=== PATIENT | female | born 1985 | race Native Hawaiian/Other Pacific Islander ===

== ENCOUNTER 2016-05-09 18:44 | Emergency (ER) | payer BC, OTHER ==
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
[2016-05-09] MEDS ORDERED: MORPHINE IV ONE (22:31)
[2016-05-09] MEDS ORDERED: ZOFRAN IV ONE (22:31)
[2016-05-09] MEDS ORDERED: TORADOL IV ONE (22:31)
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
[2016-05-10 01:10] VITALS: BP 126/77
== END 2016-05-10 01:10 | disposition home or self-care (01) ==
LOC: ED 18:44
DX: S09.90XA Unspecified injury of head, initial encounter (principal); V49.9XXA Car occupant (driver) (passenger) injured in unspecified traffic accident, initial encounter; Y93.89 Activity, other specified; Y99.9 Unspecified external cause status; Y92.410 Unspecified street and highway as the place of occurrence of the external cause
CPT/HCPCS: 36415; 70450; 71020; 72125; 84703; 96374; 96375; 99284; J1885; J2270; J2405